=== PATIENT | male | born 1970 | race Two or more races ===

== ENCOUNTER 2020-07-22 09:37 | Outpatient (REF) | payer MEDICAID, SELFPAY | END 2020-07-22 09:38 | disposition home or self-care (01) | LOC: HO.LAB 09:37 | PROVIDERS: Visit Provider Internal Medicine | DX: Z20.828 Contact with and (suspected) exposure to other viral communicable diseases (principal) | CPT/HCPCS: 36415; C9803; U0003 ==

== ENCOUNTER → 2021-05-21 19:45 | Outpatient (REF) | payer MEDICAID, SELFPAY | LOC: HO.SL 19:45 | PROVIDERS: PCP Internal Medicine; Visit Provider Internal Medicine | DX: G47.33 Obstructive sleep apnea (adult) (pediatric) (principal) | CPT/HCPCS: 95810 ==

== ENCOUNTER 2021-07-04 09:17 | Outpatient (REF) | payer MEDICAID, SELFPAY | END 2021-07-04 09:18 | disposition home or self-care (01) | LOC: HO.LAB 09:17 | PROVIDERS: PCP Internal Medicine; Visit Provider Internal Medicine | DX: Z13.89 Encounter for screening for other disorder (principal) | CPT/HCPCS: 36415; 87635; C9803 ==

== ENCOUNTER 2021-07-05 | Outpatient (REF) | payer MEDICAID, SELFPAY | END 2021-07-05 00:01 | disposition home or self-care (01) | LOC: HO.LAB | PROVIDERS: Visit Provider Internal Medicine | DX: Z13.89 Encounter for screening for other disorder (principal) | CPT/HCPCS: 36415; 87635; C9803 ==

== ENCOUNTER 2023-08-25 11:15 | Day surgery (SDC) | payer MEDICAID, SELFPAY ==
[2023-06-03 10:53] VITALS: BMI 27.1
[2023-08-25 11:42] VITALS: BMI 26.5
[2023-08-25 11:48] VITALS: BP 134/75; PULSE 58; RESP 16; TEMP 36.8; O2SAT 96
--- NOTE | 2023-08-25 11:50 | HO.ANESPROP2 ---
HPI - Anesthesia Eval Consult details Narrative: 53 yo M presenting for colonoscopy. Hx of JORGE. [facility] Past Medical History Medical History (Updated 06/03/23 @ 10:55 by Rosemary Galeana RN) Sleep apnea Family History Family history of problems with anesthesia: No Surgical History Surgical History (Updated 06/03/23 @ 10:53 by Rosemary Galeana RN) Hx of bilateral cataract extraction History of Problems with Anesthesia: No Social History Social History Patient Tobacco Use Status: Never used Tobacco Use of substances other than those prescribed or required for medical reasons: No Are you DNR?: No Advance Directives: No Advance Directives Information Provided: Yes Meds Allergies Allergy/AdvReac Type Severity Reaction Status Date / Time No Known Allergies Allergy Unverified 03/30/20 17:19 Active Medications: Current Medications Sodium Biphosphate/Sodium Phosphate (Sodium Phosphate,[place]hel-Dibasic 133 Ml Enema) 133 ml OH ONCE PRN PRN Reason: Poor Colonoscopy Prep Results Home Medications Medication Instructions Recorded Confirmed Last Taken Type No Known Home Meds 06/03/23 06/03/23 Unknown History Exam Exam Date and Time: August 25, 2023 1150 Height,Weight and Vital Signs: Height 5 ft 7 in Weight 76.827 kg Vital Signs Temperature 98.2 F 08/25/23 11:48 Pulse Rate 58 08/25/23 11:48 Respiratory Rate 16 08/25/23 11:48 Blood Pressure 134/75 08/25/23 11:48 Pulse Oximetry 96 08/25/23 11:48 Oxygen Delivery Method Room Air 08/25/23 11:48 Temperature 98.2 F 08/25/23 11:48 Pulse Rate 58 08/25/23 11:48 Respiratory Rate 16 08/25/23 11:48 Blood Pressure 134/75 08/25/23 11:48 Pulse Oximetry 96 08/25/23 11:48 Oxygen Delivery Method Room Air 08/25/23 11:48 Airway Mallampati Class: II TM Dist: >3cm Neck ROM: Full Loose/Missing/Broken Teeth: No Heart: S1S2 Lungs: CTAB Assessment and Plan Assessment Anesthesia Assessment: Anesthesia Plan Discussed and Chart Reviewed Final Anesthetic Review Family History of Problems with Anesthesia: No History of Problems with Anesthesia: No NPO: Yes ASA Class: II Final Preanesthetic Review: No Changes in Pt Med Stat, Meds/Allgs Chart Reviewed, Consent Obtained/Reviewed and Anes Risks/Benef Reviewed Patient Risk: Low Procedure Risk: Low Anesthetic Plan Anesthetic Plan: MAC: and Agree w/ Assess. and Plan Disposition: Standard PACU
[2023-08-25 13:39] VITALS: BP 103/68; PULSE 56; RESP 16; TEMP 36.1; O2SAT 98
--- NOTE | 2023-08-25 13:40 | P.BOP_ITS ---
Brief Operative Note Date of Service: 08/25/23 Pre-op diagnosis: Screening Post-op diagnosis: other (Mild sigmoid diverticulosis) Procedure: Colonoscopy to the cecum Surgeon: Robbi De Santiago MD Anesthesia: MAC Was an Guest Service Team Leader used for this Procedure?: No Estimated blood loss (mL): 0 Pathology: none sent Condition: stable Disposition: PACU
[2023-08-25 13:54] VITALS: BP 108/65; PULSE 54; RESP 18; TEMP 36.6; O2SAT 100
--- NOTE | 2023-08-25 14:32 | OP_ITS ---
DATE OF SERVICE: 08/25/2023 SURGEON: Robbi De Santiago MD INDICATIONS: The patient presents for evaluation of colorectal cancer screening. Full consent has been obtained from him for this, including risks of bleeding and perforation. PREOPERATIVE DIAGNOSIS: Colorectal cancer screening. POSTOPERATIVE DIAGNOSIS: PROCEDURE PERFORMED: Colonoscopy to the cecum. ESTIMATED BLOOD LOSS: COMPLICATIONS: ANESTHESIA: Monitored anesthesia care. ASSISTANTS: SPECIMENS: POSTOPERATIVE DIAGNOSES: Colorectal cancer screening, occasional sigmoid diverticulosis, and small internal hemorrhoids. DESCRIPTION OF PROCEDURE: The patient was placed in the left lateral decubitus position. The digital rectal exam revealed no abnormalities. The Olympus video pediatric colonoscope was entered into the rectum and advanced easily to the cecum. Once in the cecum, I did identify normal-appearing cecal pouch with appendiceal orifice and a normal-appearing ileocecal valve. The entire cecum and ileocecal valve appeared normal. The scope was slowly withdrawn assessing all mucosal surfaces carefully. Preparation was excellent. I did not visualize any sign of polyps, colitis, nor angiodysplasia. There were occasional diverticula in the sigmoid colon. In the rectum, scope was retroflexed visualizing internal hemorrhoids, but no other pathology. The rectal mucosa appeared normal. Scope was straightened and withdrawn from the patient. He tolerated the procedure well and was returned to the recovery area in stable condition. IMPRESSION: 1. Occasional sigmoid diverticulosis. 2. Small internal hemorrhoids. PLAN: Given the negative exam and negative family history, I would recommend a followup colonoscopy in 10 years for further screening. He will otherwise see me on a p.r.n. basis. Robbi De Santiago MD RMW/MODL / [phone]
== END 2023-08-25 14:10 | disposition home or self-care (01) ==
PROVIDERS: Visit Provider Internal Medicine
PROC: 0DJD8ZZ Inspection of Lower Intestinal Tract, Via Natural or Artificial Opening Endoscopic (ICD-10-PCS; CPT 45378; principal; 2023-08-25 11:20)
DX: Z12.11 Encounter for screening for malignant neoplasm of colon (principal); K57.30 Diverticulosis of large intestine without perforation or abscess without bleeding; K64.8 Other hemorrhoids; G47.33 Obstructive sleep apnea (adult) (pediatric)
CPT/HCPCS: 45378; J2704

== ENCOUNTER 2024-02-27 09:30 | Outpatient (REF) | payer MEDICAID, SELFPAY ==
[2024-02-27 11:21] LABS: Hematocrit 42.9 % (42.0-52.0); Mean Corpuscular Hemoglobin 31.1 pg (27.0-33.0); Mean Platelet Volume 10.4 fL (9.4-12.4); Platelet Count 266 X10*3/uL (160-400); Red Blood Count 4.82 X10*6/uL (4.60-5.80); Red Cell Distribution Width 12.6 % (11.0-16.0); White Blood Count 5.7 X10*3/uL (4.8-10.8)
[2024-02-27 11:30] LABS: Estimated Average Glucose 105 mg/dL; Hemoglobin A1c % 5.3 % (<6.0)
[2024-02-27 11:54] LABS: Syphilis Screen Nonreactive (Nonreactive)
[2024-02-27 11:55] LABS: Alanine Aminotransferase 37 U/L (0-40); Albumin Level 4.4 g/dL (3.5-5.0); Alkaline Phosphatase 84 U/L (39-117); Anion Gap 11 (12-20); Aspartate Amino Transferase 25 U/L (5-37); Bilirubin Total 0.6 mg/dL (0.0-1.0); Blood Urea Nitrogen 11 mg/dL (9-16); Calcium 9.9 mg/dL (8.4-10.2); Carbon Dioxide 25 mmol/L (22-29); Chloride 109 mmol/L (96-108); Cholesterol 183 mg/dL (<200); Estimated Glomerular Filt Rate > 60; Glucose Random 104 mg/dL (60-115); HDL Cholesterol 32 mg/dL (>40); LDL Cholesterol Calculated 138 mg/dL (<100); Potassium 4.1 mmol/L (3.3-5.1); Sodium 141 mmol/L (135-145); TSH reflex Free T4 2.82 uIU/mL (0.32-4.0); Total Protein 7.3 g/dL (6.5-8.0); Triglycerides 67 mg/dL (<150)
[2024-02-27 12:01] LABS: HBS Num1 2.76 mIU/mL (0-7.99); HBc Num1 0.08 S/CO (0.00-0.79); HBsAGNum1 0.29 S/CO (0.00-0.99); HIV AB/AG Nonreactive (Nonreactive); HIV Num 1 0.06 S/CO (0.00-0.99); Hepatitis B Core Antibody Nonreactive (Nonreactive); Hepatitis B Surface Antigen Negative (Negative); ~HepC Num1 0.12 S/CO (0.00-0.79); ~Hepatitis B Surface Antibody NONREACTIVE (Nonreactive); ~Hepatitis C Antibody Nonreactive (Nonreactive)
[2024-02-27 12:25] LABS: CT PCR NOT DETECTED (Not Detect.); NG PCR NOT DETECTED (Not Detect.)
== END 2024-02-27 09:31 | disposition home or self-care (01) ==
LOC: HO.HHCL 09:30
PROVIDERS: Visit Provider Student in an Organized Health Care Education/Training Program
DX: Z00.00 Encounter for general adult medical examination without abnormal findings (principal)
CPT/HCPCS: 36415; 80053; 80061; 83036; 84443; 85027; 86704; 86706; 86780; 86803; 87340; 87389; 87491; 87591

== ENCOUNTER 2024-03-29 10:47 | Outpatient (RCR) | payer MEDICAID, SELFPAY | END 2024-04-13 10:26 | disposition home or self-care (01) | LOC: HO.PT 10:47 | PROVIDERS: PCP Student in an Organized Health Care Education/Training Program; Visit Provider Student in an Organized Health Care Education/Training Program | DX: M25.561 Pain in right knee (principal); M25.562 Pain in left knee | CPT/HCPCS: 97110; 97161 ==

== ENCOUNTER 2024-06-03 08:54 | Outpatient (AMB) | payer MEDICAID, SELFPAY ==
--- NOTE | 2024-06-03 09:20 | A.OFFVIS_ITS ---
Intake Visit Reasons: balanitis Intake Note: New Patient presents for initial visit for Balanitis Urology Medications: none Blood Thinner: none Java Swing Developer Required: No Accompanied by: Self / Same As Patient Allergies No Known Allergies Allergy (Unverified 06/03/24 09:56) Medication List - Last Reconciled 06/03/24 by MANDA Ponce clotrimazole-betamethasone 1-0.05 % 1 appl topical BID 4 weeks HPI Comments Details: Navin is a very pleasant 53-year-old male patient of Dr.Ponce Avila. He has a past medical history of sleep apnea. He presents to the office today as a new patient for balanitis. In discussion with the patient today he reports noting over the last year he continues to have issues with the foreskin of his penis. In assessment of the patient today the penis is uncircumcised and the gland and head of the penis appear irritated there are no open areas or lesions noted. Otherwise area within normal limits. We discussed proper care of area. He otherwise denies any bothersome urinary issues. He denies urinary urgency, urinary frequency, incontinence, nocturia, hematuria, dysuria, foul smelling urine, changes to urinary stream, flank pain, fever, and or chills. He is happy with her current voiding parameters. We discussed topical steroid versus circumcision. Risks and benefits of these interventions were discussed. He does report being sexually active with one partner and practices safe sex. He otherwise offers no other issues or concerns at this time. [facility] Medical History Sleep apnea Surgical History (Updated 06/03/23 @ 10:53 by Rosemary Galeana RN) Hx of bilateral cataract extraction Social History Patient Tobacco Use Status: Never used Tobacco Review of Systems Const All systems reviewed & are unremarkable except as noted in HPI and below Physical Exam Const General: cooperative, healthy appearing, comfortable, no acute distress, well developed, alert and awake Orientation/consciousness: patient oriented x3 Limitations: no limitations HEENT Head: Yes normal to inspection, Yes normocephalic and Yes atraumatic Ears: hearing grossly normal bilaterally Eyes General: appearance normal, both eyes and all related structures Neck Neck: Yes normal visual inspection and Yes trachea midline Chest Chest palpation & inspection: normal inspection of the chest Resp Effort & Inspection: normal respiratory effort and able to speak in complete sentences Cardio Rate: regular rate GI Inspection: Yes normal to inspection General: Yes no CVA tenderness Penis: normal penis and uncircumcised Meatus: meatus normal Scrotum: scrotum normal Testes: Testes normal Back/Spine/Pelvis Back: no CVA tenderness Skin General skin exam: no rashes or lesions noted Neuro General: patient oriented x3 Extrem General: Yes normal to inspection Psych Appearance: grossly normal and well kempt Mental Status: mental status grossly normal Speech and movement: Normal speech and movement present and Clear speech present Affect: normal affect Attitude: cooperative Thought process: Normal thought process present Thought content: Normal thought content present Insight: Fair insight present (Psych) Judgement: Fair judgement present (Psych) Results AMB Urinalysis, Automated UA Leukoctes 0 Alona/uL Last Edit by Planana on 06/03/24 10:27 UA Nitrite Last Edit by Planana on 06/03/24 10:27 UA Urobilinogen 0.2 mg/dL Last Edit by Planana on 06/03/24 10:27 UA Protein 0 mg/dL Last Edit by Planana on 06/03/24 10:27 UA pH 6.0 Last Edit by Planana on 06/03/24 10:27 UA Blood 0 Ji/uL Last Edit by Planana on 06/03/24 10:27 UA Specific [place] 1.025 Last Edit by Planana on 06/03/24 10:27 UA Ketone Last Edit by Planana on 06/03/24 10:27 UA Bilirubin 0 mg/dL Last Edit by Planana on 06/03/24 10:27 UA Glucose 0 mg/dL Last Edit by Planana on 06/03/24 10:27 Results Reviewed Results Reviewed: Laboratory Last Values Urine pH (Auto) 6.0 06/03/24 10:26 Specific [place] (Auto) 1.025 06/03/24 10:26 Urine Protein (Auto) 0 mg/dL 06/03/24 10:26 Glucose (UA)(Auto) 0 mg/dL 06/03/24 10:26 Urine Blood (Auto) 0 Ji/uL 06/03/24 10:26 Urine Bilirubin (Auto) 0 mg/dL 06/03/24 10:26 Urine Urobilinogen (Auto) 0.2 mg/dL 06/03/24 10:26 Leukocyte Esterase (Auto) 0 Alona/uL 06/03/24 10:26 Assessment & Plan Assessment & Plan (1) Balanitis: Code(s): N48.1 - Balanitis Category: Medical Plan In office urinalysis results reviewed the patient today; as noted above. We discussed further treatment options of recurrent balanitis and risks and benefits of these interventions. Start clotrimazole-betamethasone 1-0.05 % as discussed and prescribed. He otherwise denies any bothersome urinary issues or concerns. He reports be happy with current voiding parameters. Follow-up in 1-3 months; or sooner with any issues, concerns, and or questions. Orders: Orders AMB Urinalysis Automated Today Z13.9 - Encounter for screening, unspecified Medications: New clotrimazole-betamethasone 1-0.05 % Apply thin coat 2 times per day 1 appl topical BID 45 grams 0RF 4 weeks N48.1 - Balanitis Patient Instructions: The patient had an opportunity to ask questions regarding the treatment plan. All questions were answered. Physical exam, labs, and imaging were discussed and reviewed in detail. As well as risks, benefits, and discussion of treatment choices. No major barriers to understanding were identified. The patient expressed understanding and agreement with the above treatment plan. The patient was made aware they should contact our office by phone for worsening of their current condition, the appearance of new symptoms, or with any questions or concerns. Compliance is encouraged with any medications and follow up testing that is ordered. It is a privilege to be allowed the opportunity to participate in? your urological care.? Again, if you have any questions or concerns If you have any questions or concerns please do not hesitate to contact me. The office is [phone]. This note is constructed using voice recognition software. While every effort has been made to ensure accuracy buckle sewer machine errors may have been included. Yours sincerely, LILIAM Ponce-JAZMYN Coding Level of Care Code New Pt Level 4 (54818) Diagnoses Balanitis N48.1
== END 2024-06-03 09:55 | disposition home or self-care (01) ==
PROVIDERS: PCP Student in an Organized Health Care Education/Training Program; Visit Provider Nurse Practitioner Family
DX: Z13.9 Encounter for screening, unspecified (principal); N48.1 Balanitis
CPT/HCPCS: 99204

== ENCOUNTER → 2024-06-03 08:54 | Outpatient (BNVA) | payer MEDICAID, SELFPAY | PROVIDERS: PCP Student in an Organized Health Care Education/Training Program; Visit Provider Nurse Practitioner Family | DX: N48.1 Balanitis (principal) | CPT/HCPCS: 81003; 99212 ==

== ENCOUNTER 2025-03-04 15:06 | Outpatient (REF) | payer MEDICAID, SELFPAY ==
--- OUTSIDE RECORDS SUMMARY | 2025-03-04 15:08 | XMS_ITS | Encounter Summary ---
Author Organization [facility] Address [address] [place] [address] Phone Care Team Providers Care Dowel Pin Man Name Role Phone Pcp, Not Required Primary Care Provider Unavaila ble Encounter Details Date Type Department Care Team (Late st Contact Info) Description 07/25/2020 Procedure Pass [facility] DEPT [address] [place] [address] Social History Tobacco Use Types Packs/Day Years Used Date Smoking Tobacco: Never Smokeless Tobacco: Never Sex and Gender Information Value Date Recorded Sex Assigned at Not on file Legal Sex Male 10:24 AM EDT Gender Identity Not on file Sexual Orientation Not on file documented as of this encounter Plan of Treatment Not on file documented as of this encounter Visit Diagnoses Not on filedocumented in this encounter Care Teams Dowel Pin Man Relationship Specialty Start Date End Date Pcp, Not Required [address] [place] [id number] PCP - General 07/25/20 documented as of this encounter Additional Source Comments The information contained in this document represents components of the legal health record. It is not the complete legal health record.[facility]
--- OUTSIDE RECORDS SUMMARY | 2025-03-04 15:08 | XMS_ITS | Patient Health Record ---
Author Organization [facility] Address [address] [place] [address] Care Team Providers Care Agriculture Extension Specialist Name Role Phone Veronica Greco Primary Care Provider Robbi Issa Unavailable [phone] Allergies No Known Allergies Reason For Referral No Information Social History Tobacco Use: Social History Observation Description Date Details (start date - stop date) Never Smoker NA - NA Tobacco Use/Smoking Question Answer Notes Patient is a nonsmoker Alcohol Screen Question Answer Notes Did you have a drink contain ing alcohol in the past year? Yes How often did you have a dri nk containing alcohol in the past year? Never (0 point) How many drinks did you have on a typical day when you were drinking in the past year? 1 or 2 drinks (0 point) How often did you have 6 or more drinks on one occasion in the past year? Never (0 point) Points 0 Interpretation Negative Section Notes: Originally from [facility]. He came to [place] in [place] Occ. alcohol, nonsmoker Problems Problem Type SNOMED Code ICD Code Onset Dates Problem Status W/U Status Risk Notes Problem 138070542 Colon cancer screening (Z12.11) Active confirmed Problem Diverticular disease of colon (931328011) Diverticulosis of large intestine without perforation or abscess without bleeding (K57.30) Active confirmed Problem [id number] Preprocedural examination (Z01.818) Active confirmed Plan Of Treatment Future Test Test Name Order Date COLONOSCOPY 03/18/2023 Insurance Providers Payer Name Payer Address Payer Phone Subscriber Number Group Number Insured Name Patient Relationship to Insured Coverage Start Date Coverage End Date [employer] [facility] [address] [place] [id number] RIAZ VANG Self - patient is the insured Medical (General) History Medical History History ICD Code Denies [place],DM,CVA,Lung disease,renal dise ase Surgical History Surgery Date(Month/Year) Cataract surgery-bilateral
--- OUTSIDE RECORDS SUMMARY | 2025-03-04 15:08 | XMS_ITS | Encounter Summary ---
Author Organization [employer] Address [address] [place] [address] Care Team Providers Care Publisher Assistant Name Role Phone Wendy Tipton MD Primary Care Pro vider Reason for Visit * Reason Onset Date Comments Recieved call 09/29/2023 Encounter Details Date Type Department Care Team (Late st Contact Info) Description 09/29/2023 Telephone [facility] MEDICINE [address] [place] [address] Wendy Tipton MD [address] [place] [address] Recieved call Social History Tobacco Use Types Packs/Day Years Used Date Smoking Tobacco: Never Smokeless Tobacco: Never Alcohol Use Standard Drinks/Week Comments Never 0 (1 standard drink = 0.6 oz pur e alcohol) Sex and Gender Information Value Date Recorded Sex Assigned at Male 05/13/2022 10:18 AM EDT Legal Sex Male 10:18 AM EDT Gender Identity Male 05/13/2022 10:18 AM EDT Sexual Orientation Straight 05/13/2022 10 :18 AM EDT documented as of this encounter Miscellaneous Notes * Telephone Encounter - Bang Rosales - 09/29/2023 12:21 PM EDT Tc from pt stating he received a call a few days ago. Medical Pathology Teacher didn't see anything tasked. documented in this encounter Plan of Treatment Upcoming Encounters Date Type Department Care Team (Late st Contact Info) Description 04/04/2025 8:00 AM EDT Office Visit [facility] ADULT DENTAL [address] [place], [place] [phone] Jenni Robbins [address] [place], [place] [phone] documented as of this encounter Visit Diagnoses Not on filedocumented in this encounter Care Teams Publisher Assistant Relationship Specialty Start Date End Date Wendy Tipton MD [address] [place] [address] PCP - General Internal Medicine 03/27/23 documented as of this encounter
[2025-03-07 19:54] LABS: C. Trachomatis RNA TMA, Throat NOT DETECTED (NOT DETECTED); N. gonorrhoeae RNA TMA, Throat NOT DETECTED (NOT DETECTED)
== END 2025-03-04 15:07 | disposition home or self-care (01) ==
LOC: HO.HHCLNP 15:06
PROVIDERS: Visit Provider Student in an Organized Health Care Education/Training Program
DX: J02.9 Acute pharyngitis, unspecified (principal)
CPT/HCPCS: 87491; 87591

== ENCOUNTER 2025-05-31 09:58 | Outpatient (REF) | payer MEDICAID, SELFPAY ==
[2025-05-31 12:00] LABS: Hematocrit 42.9 % (42.0-52.0); Hemoglobin 14.4 g/dl (14.0-18.0); Mean Corpuscular HGB Conc 33.6 g/dl (31.0-36.0); Mean Corpuscular Hemoglobin 30.5 pg (27.0-33.0); Mean Corpuscular Volume 90.9 fL (80.0-98.0); NRBC Abs Auto 0.000 X10*3/uL (0.0-0.012); NRBC Pct Auto 0.0 /100WBC (0.0-0.2); Platelet Count 279 X10*3/uL (160-400); Red Blood Count 4.72 X10*6/uL (4.60-5.80); White Blood Count 5.6 X10*3/uL (4.8-10.8)
[2025-05-31 12:30] LABS: Prostate Specific Antigen 0.21 ng/mL (<0.05-4.0)
[2025-05-31 12:32] LABS: Alanine Aminotransferase 51 U/L (0-40); Albumin Level 4.8 g/dL (3.5-5.0); Alkaline Phosphatase 92 U/L (39-117); Anion Gap 11 (12-20); Aspartate Amino Transferase 40 U/L (5-37); Blood Urea Nitrogen 11 mg/dL (9-16); Calcium 9.4 mg/dL (8.4-10.2); Carbon Dioxide 24 mmol/L (22-29); Chloride 109 mmol/L (96-108); Cholesterol 178 mg/dL (<200); Estimated Glomerular Filt Rate > 60; HDL Cholesterol 29 mg/dL (>40); Potassium 4.5 mmol/L (3.3-5.1); Sodium 139 mmol/L (135-145); Total Protein 7.6 g/dL (6.5-8.0); Triglycerides 74 mg/dL (<150)
[2025-05-31 12:34] LABS: Syphilis Screen Nonreactive (Nonreactive)
[2025-05-31 12:56] LABS: CT PCR Urine NOT DETECTED (Not Detect.); NG PCR Urine NOT DETECTED (Not Detect.)
[2025-05-31 13:00] LABS: HBsAGNum1 0.49 S/CO (0.00-0.99); HIV Num 1 0.06 S/CO (0.00-0.99); Hepatitis B Surface Antigen Negative (Negative); ~HepC Num1 0.12 S/CO (0.00-0.79); ~Hepatitis C Antibody Nonreactive (Nonreactive)
[2025-06-01 07:39] LABS: Rubeola IgG (Measles) 29.70 AU/mL
== END 2025-05-31 09:59 | disposition home or self-care (01) ==
LOC: HO.HHCL 09:58
PROVIDERS: PCP Student in an Organized Health Care Education/Training Program; Visit Provider Student in an Organized Health Care Education/Training Program
DX: Z01.84 Encounter for antibody response examination (principal); Z11.59 Encounter for screening for other viral diseases; Z11.4 Encounter for screening for human immunodeficiency virus [HIV]; Z20.2 Contact with and (suspected) exposure to infections with a predominantly sexual mode of transmission
CPT/HCPCS: 80053; 80061; 83036; 84153; 84443; 85027; 86735; 86762; 86765; 86780; 86803; 87340; 87389; 87491; 87591